=== PATIENT | female | born 1965 | race Caucasian/White ===

== ENCOUNTER → 2016-07-15 | Outpatient (CLI) | payer BC, OTHER ==
[~2016-07-15] MED LIST: /AMLO25TA PO; ASPI1TAB PO; ASPI81TA85 PO; BAYE325T12 PO; DULC5TAB PO; LIPI20TA PO; LISI10TA2 PO; NO HISTORICAL MEDS; OMEP20CA3 PO; PROA1AER IN; PROVENTIL INH; TYLE325T5 PO
[2016-07-15 09:05] LABS: ALBUMIN 3.5 GM/DL (3.2-5.2); ALBUMIN/GLOBULIN RATIO 1.06 (1.00-1.93); ALKALINE PHOSPHATASE 78 U/L (45-117); ALT/SGPT 19 U/L (12-78); ANION GAP 9 MEQ/L (8-16); AST/SGOT 13 U/L (15-37); BILIRUBIN,TOTAL 0.6 MG/DL (0.2-1.0); BLOOD UREA NITROGEN 13 MG/DL (7-18); CALCIUM LEVEL 8.2 MG/DL (8.5-10.1); CARBON DIOXIDE LEVEL 27 MEQ/L (21-32); CHLORIDE LEVEL 105 MEQ/L (98-107); CHOLESTEROL LEVEL 139 MG/DL (<200); GLOMERULAR FILTRATION RATE > 60.0 (>51); GLUCOSE, FASTING 93 MG/DL (70-105); POTASSIUM SERUM 3.7 MEQ/L (3.5-5.1); SODIUM LEVEL 141 MEQ/L (136-145); TOTAL PROTEIN 6.8 GM/DL (6.4-8.2); TRIGLYCERIDES LEVEL 70 MG/DL (<150)
== END ==
LOC: M LAB 08:15
PROVIDERS: ATTEND Internal Medicine
DX: I10 Essential (primary) hypertension (principal); E78.5 Hyperlipidemia, unspecified

== ENCOUNTER → 2016-12-10 | Outpatient (CLI) | payer BC ==
[~2016-12-10] MED LIST changes: +BACT800T5 PO; +CHLO125TA; +EPIN0.3I6; +FLUT1LOT INH; +NYST10CR; +PEPC1TAB4 PO; +POTA20TA6; +PRED20TA PO; -PROA1AER IN; +PROAAER10; +PROAAER10 IN; +TERA2CAP3
--- NOTE | 2016-12-10 16:02 | REPMRS ---
Patient History The patient states she had a clinical breast exam in 12/2016. No known family history of cancer. Digital Woman Screen Mammo: December 10, 2016 - Exam #: [id number] Bilateral CC and MLO view(s) were taken. Technologist: Fabiola Webber Technologist Prior study comparison: October 27, 2015, digital woman screen mammo performed at [facility] to [facility]. October 25, 2014, digital woman screen mammo performed at [facility] to [facility]. FINDINGS: There are scattered fibroglandular densities. There has been no change in the appearance of the mammogram from the prior studies. There is a mild amount of residual fibroglandular tissue which is fairly symmetric. There is no interval development of dominant mass, architectural distortion, or clustered microcalcification suggestive of malignancy. ASSESSMENT: BI-RADS/ACR category 1 mammogram. Negative. Recommendation Routine screening mammogram in 1 year (for women over age 40). This mammogram was interpreted with the aid of an FDA-approved computer-aided dectection system. Electronically Signed By: Efrain Hoskins MD 12/10/16 2732
== END ==
LOC: M WHC 14:22
PROVIDERS: ATTEND Nurse Practitioner Family
DX: Z12.31 Encounter for screening mammogram for malignant neoplasm of breast (principal)

== ENCOUNTER 2016-12-30 03:57 | Emergency (ER) | payer BC, OTHER ==
[~2016-12-30 03:57] MED LIST changes: -BACT800T5 PO; -CHLO125TA; -EPIN0.3I6; -FLUT1LOT INH; -NYST10CR; -PEPC1TAB4 PO; -POTA20TA6; -PRED20TA PO; -PROAAER10; -TERA2CAP3
[2016-12-30 04:07] VITALS: BP 149/76
[2016-12-30] MEDS ORDERED: LISI10TA2 PO (04:14)
[2016-12-30] MEDS ORDERED: FLUT1LOT INH (04:14)
[2016-12-30] MEDS ORDERED: BACT800T5 PO (04:14)
[2016-12-30] MEDS ORDERED: diphenhydrAMINE INJ 50MG/ML VIAL (J1200) IV ONE (04:45)
[2016-12-30] MEDS ORDERED: dexameTHASONE 20 MG/5 ML VIAL (J1100) IV ONE (04:45)
[2016-12-30] MEDS ORDERED: PRED20TA PO (05:20)
== END 2016-12-30 05:31 | disposition home or self-care (01) ==
LOC: M ED 03:57
DX: T78.40XA Allergy, unspecified, initial encounter (principal); I10 Essential (primary) hypertension; E78.4 Other hyperlipidemia; J45.909 Unspecified asthma, uncomplicated; K21.9 Gastro-esophageal reflux disease without esophagitis
CPT/HCPCS: 96374; 96375; 99283; J1100; J1200

== ENCOUNTER 2017-01-09 04:42 | Emergency (ER) | payer BC, OTHER ==
[~2017-01-09] VITALS: Ht 170.2 cm; Wt 113.6 kg
[~2017-01-09 04:42] MED LIST changes: +BACT800T5 PO; +FLUT1LOT INH; +PRED20TA PO
[2017-01-09] MEDS ORDERED: diphenhydrAMINE INJ 50MG/ML VIAL (J1200) IV ONE (05:45)
[2017-01-09] MEDS ORDERED: methylPREDNISolone INJ 125 MG/2 ML VIAL (J2930) IV ONE (05:45)
[2017-01-09] MEDS ORDERED: FAMOTIDINE IV BAG 20 MG in APPROPRIATE DILUENT 1 EA IV ONE (05:45)
[2017-01-09] MEDS ORDERED: PRED20TA PO (06:28)
[2017-01-09 06:42] VITALS: BP 158/76
== END 2017-01-09 06:43 | disposition home or self-care (01) ==
LOC: M ED 04:42
DX: T78.40XA Allergy, unspecified, initial encounter (principal)
CPT/HCPCS: 96374; 96375; 99283; J1200; J2930

== ENCOUNTER → 2017-01-20 | Outpatient (CLI) | payer BC, OTHER ==
[~2017-01-20] MED LIST changes: +ALLE180T33 PO; +CHLO125TA; +EPIN0.3I6; +LEVOTAB10 PO; +NYST10CR; +PEPC1TAB4 PO; +POTA20TA6; +PRED10TA2 PO; +PROAAER10; +TERA2CAP3
[2017-01-20 08:58] LABS: ALKALINE PHOSPHATASE 59 U/L (45-117); ALT/SGPT 22 U/L (12-78); ANION GAP 7 MEQ/L (8-16); AST/SGOT 7 U/L (15-37); BLOOD UREA NITROGEN 18 MG/DL (7-18); CALCIUM LEVEL 8.5 MG/DL (8.5-10.1); CARBON DIOXIDE LEVEL 30 MEQ/L (21-32); CHLORIDE LEVEL 106 MEQ/L (98-107); CREATININE FOR GFR 0.89 MG/DL (0.55-1.02); GLOMERULAR FILTRATION RATE > 60.0 (>51); GLUCOSE, FASTING 79 MG/DL (70-105); POTASSIUM SERUM 3.2 MEQ/L (3.5-5.1); SODIUM LEVEL 143 MEQ/L (136-145)
[2017-01-20 08:59] LABS: ALBUMIN 3.2 GM/DL (3.2-5.2); ALBUMIN/GLOBULIN RATIO 0.97 (1.00-1.93); BILIRUBIN,TOTAL 0.6 MG/DL (0.2-1.0); CHOLESTEROL LEVEL 137 MG/DL (<200); TOTAL PROTEIN 6.5 GM/DL (6.4-8.2); TRIGLYCERIDES LEVEL 96 MG/DL (<150)
== END ==
LOC: M LAB 08:14
PROVIDERS: ATTEND Internal Medicine
DX: I10 Essential (primary) hypertension (principal)

== ENCOUNTER 2017-01-24 16:43 | Emergency (ER) | payer BC, OTHER ==
[~2017-01-24] VITALS: Ht 170.2 cm; Wt 113.6 kg
[~2017-01-24 16:43] MED LIST changes: -ALLE180T33 PO; -CHLO125TA; -EPIN0.3I6; -LEVOTAB10 PO; -NYST10CR; -PEPC1TAB4 PO; -POTA20TA6; -PRED10TA2 PO; -PROAAER10; -TERA2CAP3
[2017-01-24] MEDS ORDERED: CHLO125TA (16:57)
[2017-01-24] MEDS ORDERED: NYST10CR (16:57)
[2017-01-24] MEDS ORDERED: EPIN0.3I6 (16:57)
[2017-01-24] MEDS ORDERED: POTA20TA6 (16:57)
[2017-01-24] MEDS ORDERED: FAMOTIDINE IV BAG 20 MG in APPROPRIATE DILUENT 1 EA IV ONE (19:15)
[2017-01-24] MEDS ORDERED: methylPREDNISolone INJ 125 MG/2 ML VIAL (J2930) IV ONE (19:15)
[2017-01-24] MEDS ORDERED: diphenhydrAMINE INJ 50MG/ML VIAL (J1200) IV ONE (19:15)
[2017-01-24] MEDS ORDERED: PEPC1TAB4 PO (20:27)
[2017-01-24] MEDS ORDERED: PRED20TA PO (20:27)
[2017-01-24 20:39] VITALS: BP 137/87
== END 2017-01-24 20:45 | disposition home or self-care (01) ==
LOC: M ED 16:43
DX: T78.40XA Allergy, unspecified, initial encounter (principal); I10 Essential (primary) hypertension; Y92.099 Unspecified place in other non-institutional residence as the place of occurrence of the external cause; Y93.89 Activity, other specified; Y99.9 Unspecified external cause status
CPT/HCPCS: 96365; 96375; 99283; J1200; J2930

== ENCOUNTER 2017-02-20 00:06 | Emergency (ER) | payer BC, OTHER ==
[~2017-02-20] VITALS: Ht 172.7 cm; Wt 113.6 kg
[~2017-02-20 00:06] MED LIST changes: +CHLO125TA; +EPIN0.3I6; +NYST10CR; +PEPC1TAB4 PO; +POTA20TA6
[2017-02-20] MEDS ORDERED: TERA2CAP3 (00:21)
[2017-02-20] MEDS ORDERED: PROAAER10 (00:21)
[2017-02-20] MEDS ORDERED: diphenhydrAMINE INJ 50MG/ML VIAL (J1200) IV ONE (00:45)
[2017-02-20] MEDS ORDERED: FAMOTIDINE IV BAG 20 MG in APPROPRIATE DILUENT 1 EA IV ONE (00:45)
[2017-02-20] MEDS ORDERED: methylPREDNISolone INJ 125 MG/2 ML VIAL (J2930) IV ONE (00:45)
[2017-02-20 02:25] VITALS: BP 139/67
== END 2017-02-20 02:29 | disposition home or self-care (01) ==
LOC: M ED 00:06
DX: T78.40XA Allergy, unspecified, initial encounter (principal); Y92.89 Other specified places as the place of occurrence of the external cause; Y93.89 Activity, other specified; Y99.9 Unspecified external cause status
CPT/HCPCS: 96374; 96375; 99283; J1200; J2930

== ENCOUNTER 2017-03-17 22:28 | Emergency (ER) | payer BC, OTHER ==
[~2017-03-17] VITALS: Ht 170.2 cm; Wt 113.6 kg
[~2017-03-17 22:28] MED LIST changes: +PROAAER10; +TERA2CAP3
[2017-03-17 22:29] VITALS: BP 173/86
[2017-03-17] MEDS ORDERED: ALLE180T33 PO (22:40)
[2017-03-17] MEDS ORDERED: LEVOTAB10 PO (22:40)
[2017-03-17] MEDS ORDERED: predniSONE 10 MG TAB PO ONE (23:00)
[2017-03-17] MEDS ORDERED: PRED10TA2 PO (23:01)
== END 2017-03-17 23:15 | disposition home or self-care (01) ==
LOC: M ED 22:28
DX: T78.40XA Allergy, unspecified, initial encounter (principal)

== ENCOUNTER 2017-04-08 23:17 | Emergency (ER) | payer BC, OTHER ==
[~2017-04-08] VITALS: Ht 170.2 cm; Wt 113.6 kg
[~2017-04-08 23:17] MED LIST changes: +ALLE180T33 PO; +LEVOTAB10 PO; +PRED10TA2 PO
[2017-04-08 23:18] VITALS: BP 165/88
== END 2017-04-09 01:09 | disposition left against medical advice (07) ==
LOC: M ED 23:17
DX: Z53.29 Procedure and treatment not carried out because of patient's decision for other reasons (principal)

== ENCOUNTER → 2017-07-28 | Outpatient (CLI) | payer BC, OTHER ==
[2017-07-28 09:19] LABS: ALBUMIN 3.5 GM/DL (3.2-5.2); ALBUMIN/GLOBULIN RATIO 1.13 (1.00-1.93); ALKALINE PHOSPHATASE 80 U/L (45-117); ALT/SGPT 19 U/L (12-78); ANION GAP 7 MEQ/L (8-16); AST/SGOT 9 U/L (7-37); BILIRUBIN,TOTAL 0.5 MG/DL (0.2-1.0); BLOOD UREA NITROGEN 14 MG/DL (7-18); CALCIUM LEVEL 8.3 MG/DL (8.5-10.1); CARBON DIOXIDE LEVEL 27 MEQ/L (21-32); CHLORIDE LEVEL 110 MEQ/L (98-107); CHOLESTEROL LEVEL 117 MG/DL (<200); CHOLESTEROL RISK RATIO 2.089 (<5); CREATININE FOR GFR 0.86 MG/DL (0.55-1.30); GLOMERULAR FILTRATION RATE > 60.0 (>51); GLUCOSE, FASTING 98 MG/DL (70-100); HDL CHOLESTEROL 56 MG/DL (>40); LDL CHOLESTEROL 49.4 MG/DL (<100); NON-HDL-C 61 MG/DL; POTASSIUM SERUM 4.2 MEQ/L (3.5-5.1); SODIUM LEVEL 144 MEQ/L (136-145); TOTAL PROTEIN 6.6 GM/DL (6.4-8.2); TRIGLYCERIDES LEVEL 58 MG/DL (<150)
== END ==
LOC: M LAB 08:16
DX: E78.5 Hyperlipidemia, unspecified (principal); I10 Essential (primary) hypertension
CPT/HCPCS: 80053

== ENCOUNTER → 2018-01-26 | Outpatient (CLI) | payer BC, OTHER ==
[2018-01-26 09:39] LABS: ALBUMIN 3.5 GM/DL (3.2-5.2); ALBUMIN/GLOBULIN RATIO 1.06 (1.00-1.93); ALKALINE PHOSPHATASE 91 U/L (45-117); ALT/SGPT 17 U/L (12-78); ANION GAP 9 MEQ/L (8-16); AST/SGOT 7 U/L (7-37); BILIRUBIN,TOTAL 0.4 MG/DL (0.2-1.0); BLOOD UREA NITROGEN 17 MG/DL (7-18); CALCIUM LEVEL 8.3 MG/DL (8.5-10.1); CARBON DIOXIDE LEVEL 25 MEQ/L (21-32); CHLORIDE LEVEL 109 MEQ/L (98-107); CHOLESTEROL LEVEL 126 MG/DL (<200); CHOLESTEROL RISK RATIO 2.571 (<5); CREATININE FOR GFR 0.94 MG/DL (0.55-1.30); GLOMERULAR FILTRATION RATE > 60.0 (>51); GLUCOSE, FASTING 91 MG/DL (70-100); HDL CHOLESTEROL 49 MG/DL (>40); LDL CHOLESTEROL 63 MG/DL (<100); NON-HDL-C 77 MG/DL; POTASSIUM SERUM 4.2 MEQ/L (3.5-5.1); SODIUM LEVEL 143 MEQ/L (136-145); TOTAL PROTEIN 6.8 GM/DL (6.4-8.2); TRIGLYCERIDES LEVEL 69 MG/DL (<150)
== END ==
LOC: M LAB 08:34
DX: E78.5 Hyperlipidemia, unspecified (principal); I10 Essential (primary) hypertension
CPT/HCPCS: 84443

== ENCOUNTER → 2018-02-10 | Outpatient (CLI) | payer BC | LOC: M WHC 13:30 | DX: Z12.31 Encounter for screening mammogram for malignant neoplasm of breast (principal) | CPT/HCPCS: 77067 ==

== ENCOUNTER → 2018-02-10 | Outpatient (REF) | payer OTHER | LOC: M SFHCWAGY 13:56 | DX: Z12.4 Encounter for screening for malignant neoplasm of cervix (principal) ==

== ENCOUNTER → 2018-06-29 | Outpatient (CLI) | payer BC, OTHER ==
[~2018-06-29] MED LIST changes: +EPIN0.3I11; -EPIN0.3I6; -PEPC1TAB4 PO; +PEPC1TAB5 PO
[2018-06-29 08:57] LABS: ALBUMIN 3.6 GM/DL (3.2-5.2); ALT/SGPT 16 U/L (12-78); BILIRUBIN,TOTAL 0.5 MG/DL (0.2-1.0); BLOOD UREA NITROGEN 17 MG/DL (7-18); CALCIUM LEVEL 8.3 MG/DL (8.5-10.1); CARBON DIOXIDE LEVEL 26 MEQ/L (21-32); CHLORIDE LEVEL 108 MEQ/L (98-107); CHOLESTEROL LEVEL 130 MG/DL (<200); CHOLESTEROL RISK RATIO 2.363 (<5); CREATININE FOR GFR 0.87 MG/DL (0.55-1.30); GLOMERULAR FILTRATION RATE > 60.0 (>51); GLUCOSE, FASTING 96 MG/DL (70-100); HDL CHOLESTEROL 55 MG/DL (>40); LDL CHOLESTEROL 65 MG/DL (<100); NON-HDL-C 75 MG/DL; POTASSIUM SERUM 4.2 MEQ/L (3.5-5.1); SODIUM LEVEL 142 MEQ/L (136-145); TOTAL PROTEIN 6.9 GM/DL (6.4-8.2); TRIGLYCERIDES LEVEL 52 MG/DL (<150)
== END ==
LOC: M LAB 08:14
PROVIDERS: ATTEND Internal Medicine
DX: E78.5 Hyperlipidemia, unspecified (principal); I10 Essential (primary) hypertension

== ENCOUNTER → 2019-01-18 | Outpatient (CLI) | payer BC, OTHER ==
[~2019-01-18] MED LIST changes: -/AMLO25TA PO; -ASPI1TAB PO; +ASPI81TA26 PO; +LISI10TA15 PO; -LISI10TA2 PO; +NORV2TAB PO; +OMEP1CAP73 PO; -OMEP20CA3 PO
[2019-01-18 09:15] LABS: EOS # 0.5 10^3/uL (0.0-0.5); HEMATOCRIT 39.5 % (36.0-47.0); HEMOGLOBIN 12.6 g/dl (12.0-15.5); LYMPH # 1.3 10^3/uL (1.5-5.0); LYMPH % 21.9 % (24.0-44.0); MEAN CORPUSCULAR HEMOGLOBIN 27.1 pg (27.0-33.0); MEAN CORPUSCULAR HGB CONC 31.9 g/dl (32.0-36.5); MEAN CORPUSCULAR VOLUME 84.9 fl (80.0-96.0); MONO # 0.3 10^3/uL (0.0-0.8); MONO % 5.4 % (0.0-5.0); NEUTROPHILS # 3.7 10^3/uL (1.5-8.5); NEUTROPHILS % 63.4 % (36.0-66.0); PLATELET COUNT, AUTOMATED 229 10^3/uL (150-450); RED BLOOD COUNT 4.65 10^6/uL (4.00-5.40); WHITE BLOOD COUNT 5.9 10^3/uL (4.0-10.0)
[2019-01-18 09:44] LABS: ALBUMIN 3.5 GM/DL (3.2-5.2); ALT/SGPT 17 U/L (12-78); BILIRUBIN,TOTAL 0.5 MG/DL (0.2-1.0); BLOOD UREA NITROGEN 16 MG/DL (7-18); CALCIUM LEVEL 8.8 MG/DL (8.5-10.1); CARBON DIOXIDE LEVEL 25 MEQ/L (21-32); CHLORIDE LEVEL 112 MEQ/L (98-107); CHOLESTEROL LEVEL 135 MG/DL (<200); CREATININE FOR GFR 0.88 MG/DL (0.55-1.30); GLOMERULAR FILTRATION RATE > 60.0 (>51); GLUCOSE, FASTING 94 MG/DL (70-100); HDL CHOLESTEROL 56 MG/DL (>40); LDL CHOLESTEROL 64 MG/DL (<100); NON-HDL-C 79 MG/DL; POTASSIUM SERUM 4.3 MEQ/L (3.5-5.1); SODIUM LEVEL 144 MEQ/L (136-145); TOTAL PROTEIN 6.7 GM/DL (6.4-8.2); TRIGLYCERIDES LEVEL 75 MG/DL (<150)
== END ==
LOC: M LAB 08:22
PROVIDERS: ATTEND Internal Medicine
DX: I10 Essential (primary) hypertension (principal)

== ENCOUNTER → 2019-01-29 | Outpatient (REF) ==
[~2019-01-29] MED LIST changes: -OMEP1CAP73 PO; +OMEP20CA4 PO
[2019-01-30 11:06] LABS: RUBELLA IgG QUALITATIVE IMMUNE (IMMUNE)
== END ==
LOC: M LAB 17:46
PROVIDERS: ATTEND Nurse Practitioner Adult Health
DX: Z02.1 Encounter for pre-employment examination (principal)

== ENCOUNTER → 2019-06-11 | Outpatient (CLI) | payer BC, OTHER ==
[~2019-06-11] MED LIST changes: +OMEP1CAP73 PO; -OMEP20CA4 PO
--- NOTE | 2019-06-11 16:45 | REPMRS ---
Patient History The patient states she had a clinical breast exam in June 2019.No known family history of cancer. No Hormone Replacement Therapy Digital Woman Screen Mammo: June 11, 2019 - Exam #: [id number] Bilateral CC and MLO view(s) were taken. Technologist: Nga Valdez, Technologist Prior study comparison: February 10, 2018, bilateral digital woman screen mammo performed at [facility]. December 10, 2016, digital woman screen mammo performed at [facility]. October 27, 2015, digital woman screen mammo performed at [facility]. FINDINGS: There are scattered fibroglandular densities. There has been no change in the appearance of the mammogram from the prior studies. There is a mild amount of scattered fibroglandular density which is fairly symmetric. There is no interval development of dominant mass, architectural distortion, or grouped microcalcification suggestive of malignancy. 3-D tomosynthesis shows no additional findings. Assessment: BI-RADS/ACR category 1 mammogram. Negative Mammogram. Recommendation Routine screening mammogram of both breasts in 1 year (for women over age 40). This patient's Lifetime Breast Cancer Risk is estimated at 9.4 %. This mammogram was interpreted with the aid of an FDA-approved computer-aided dectection system. Electronically Signed By: Gus Mckeon MD 06/11/19 [id number]
== END ==
LOC: M WHC 15:14
PROVIDERS: ATTEND Nurse Practitioner Family
DX: Z12.31 Encounter for screening mammogram for malignant neoplasm of breast (principal); Z12.4 Encounter for screening for malignant neoplasm of cervix
CPT/HCPCS: 77063; 77067; 87624; G0123

== ENCOUNTER → 2019-07-12 | Outpatient (CLI) | payer BC, OTHER ==
[2019-07-12 09:45] LABS: ALBUMIN 3.5 GM/DL (3.2-5.2); ALT/SGPT 21 U/L (12-78); BILIRUBIN,TOTAL 0.5 MG/DL (0.2-1.0); BLOOD UREA NITROGEN 18 MG/DL (7-18); CALCIUM LEVEL 8.2 MG/DL (8.5-10.1); CARBON DIOXIDE LEVEL 27 MEQ/L (21-32); CHLORIDE LEVEL 111 MEQ/L (98-107); CHOLESTEROL LEVEL 125 MG/DL (<200); CHOLESTEROL RISK RATIO 2.551 (<5); CREATININE FOR GFR 0.85 MG/DL (0.55-1.30); GLOMERULAR FILTRATION RATE > 60.0 (>51); GLUCOSE, FASTING 99 MG/DL (70-100); HDL CHOLESTEROL 49 MG/DL (>40); LDL CHOLESTEROL 64 MG/DL (<100); NON-HDL-C 76 MG/DL; POTASSIUM SERUM 4.3 MEQ/L (3.5-5.1); SODIUM LEVEL 143 MEQ/L (136-145); TOTAL PROTEIN 6.7 GM/DL (6.4-8.2); TRIGLYCERIDES LEVEL 62 MG/DL (<150)
== END ==
LOC: M LAB 08:41
PROVIDERS: ATTEND Family Medicine
DX: E78.5 Hyperlipidemia, unspecified (principal); F41.9 Anxiety disorder, unspecified; I10 Essential (primary) hypertension

== ENCOUNTER → 2020-01-17 | Outpatient (CLI) | payer BC, OTHER ==
[2020-01-17 09:10] LABS: ALBUMIN 3.4 GM/DL (3.2-5.2); ALT/SGPT 20 U/L (12-78); BILIRUBIN,TOTAL 0.4 MG/DL (0.2-1.0); BLOOD UREA NITROGEN 20 MG/DL (7-18); CALCIUM LEVEL 8.4 MG/DL (8.5-10.1); CARBON DIOXIDE LEVEL 27 MEQ/L (21-32); CHLORIDE LEVEL 110 MEQ/L (98-107); CHOLESTEROL LEVEL 135 MG/DL (<200); CHOLESTEROL RISK RATIO 2.647 (<5); CREATININE FOR GFR 0.85 MG/DL (0.55-1.30); GLOMERULAR FILTRATION RATE > 60.0 (>51); GLUCOSE, FASTING 97 MG/DL (70-100); HDL CHOLESTEROL 51 MG/DL (>40); LDL CHOLESTEROL 70 MG/DL (<100); NON-HDL-C 84 MG/DL; POTASSIUM SERUM 4.6 MEQ/L (3.5-5.1); SODIUM LEVEL 143 MEQ/L (136-145); TOTAL PROTEIN 7.1 GM/DL (6.4-8.2); TRIGLYCERIDES LEVEL 68 MG/DL (<150)
== END ==
LOC: M LAB 08:08
PROVIDERS: ATTEND Internal Medicine
DX: E78.5 Hyperlipidemia, unspecified (principal); I10 Essential (primary) hypertension; F41.9 Anxiety disorder, unspecified

== ENCOUNTER → 2020-05-31 | Outpatient (REF) | payer OTHER | LOC: M LAB REF 15:22 | PROVIDERS: ATTEND Dermatology | DX: D17.1 Benign lipomatous neoplasm of skin and subcutaneous tissue of trunk (principal) ==

== ENCOUNTER → 2020-07-27 | Outpatient (CLI) | payer BC, OTHER ==
[2020-07-27 07:09] LABS: ALBUMIN 3.5 GM/DL (3.2-5.2); ALT/SGPT 23 U/L (12-78); BILIRUBIN,TOTAL 0.3 MG/DL (0.2-1.0); BLOOD UREA NITROGEN 16 MG/DL (7-18); CALCIUM LEVEL 8.3 MG/DL (8.5-10.1); CARBON DIOXIDE LEVEL 29 MEQ/L (21-32); CHLORIDE LEVEL 109 MEQ/L (98-107); CHOLESTEROL LEVEL 128 MG/DL (<200); CHOLESTEROL RISK RATIO 2.285 (<5); CREATININE FOR GFR 0.82 MG/DL (0.55-1.30); GLOMERULAR FILTRATION RATE > 60.0 (>51); GLUCOSE, FASTING 101 MG/DL (70-100); HDL CHOLESTEROL 56 MG/DL (>40); LDL CHOLESTEROL 59 MG/DL (<100); NON-HDL-C 72 MG/DL; POTASSIUM SERUM 4.1 MEQ/L (3.5-5.1); SODIUM LEVEL 143 MEQ/L (136-145); TOTAL PROTEIN 6.9 GM/DL (6.4-8.2); TRIGLYCERIDES LEVEL 64 MG/DL (<150)
== END ==
LOC: M LAB 06:10
PROVIDERS: ATTEND Internal Medicine
DX: E78.5 Hyperlipidemia, unspecified (principal); I10 Essential (primary) hypertension; F41.9 Anxiety disorder, unspecified

== ENCOUNTER → 2020-08-01 | Outpatient (CLI) | payer BC ==
--- NOTE | 2020-08-01 09:39 | REPMRS ---
Patient History The patient states she had a clinical breast exam in 07/2020 Patient is postmenopausal. Family history of colorectal cancer at age 78 and prostate cancer at age 50 or over in father. No Hormone Replacement Therapy Digital Woman Screen Mammo: August 01, 2020 - Exam #: [id number] Bilateral CC and MLO view(s) were taken. Technologist: Mounika Owens, Technologist Prior study comparison: June 11, 2019, bilateral digital woman screen mammo performed at [facility]. February 10, 2018, bilateral digital woman screen mammo performed at [facility]. December 10, 2016, digital woman screen mammo performed at [facility]. FINDINGS: The breast tissue is almost entirely fat. The Volpara volumetric breast density category is: A. There has been no change in the appearance of the mammogram from the prior studies. There is no interval development of dominant mass, architectural distortion, or grouped microcalcification typical of malignancy. 3-D tomosynthesis shows no additional findings. Assessment: BI-RADS/ACR category 1 mammogram. Negative Mammogram. Recommendation Routine screening mammogram of both breasts in 1 year (for women over age 40). This patient's Tyrer-zick Lifetime Breast Cancer RIsk is estimated at 10.5 %. This mammogram was interpreted with the aid of an FDA-approved computer-aided dectection system. Electronically Signed By: Gus Mckeon MD 08/01/20 0939
== END ==
LOC: M WHC 08:01
PROVIDERS: ATTEND Nurse Practitioner Family
DX: Z12.31 Encounter for screening mammogram for malignant neoplasm of breast (principal); R92.8 Other abnormal and inconclusive findings on diagnostic imaging of breast

== ENCOUNTER → 2021-01-29 | Outpatient (CLI) | payer BC, OTHER ==
[2021-01-29 10:33] LABS: ALBUMIN 3.2 GM/DL (3.2-5.2); ALT/SGPT 21 U/L (12-78); BILIRUBIN,TOTAL 0.5 MG/DL (0.2-1.0); BLOOD UREA NITROGEN 16 MG/DL (7-18); CALCIUM LEVEL 8.6 MG/DL (8.5-10.1); CARBON DIOXIDE LEVEL 29 MEQ/L (21-32); CHLORIDE LEVEL 110 MEQ/L (98-107); CHOLESTEROL LEVEL 132 MG/DL (<200); CREATININE FOR GFR 0.78 MG/DL (0.55-1.30); GLOMERULAR FILTRATION RATE > 60.0 (>51); GLUCOSE, FASTING 97 MG/DL (70-100); HDL CHOLESTEROL 55 MG/DL (>40); LDL CHOLESTEROL 65 MG/DL (<100); NON-HDL-C 77 MG/DL; POTASSIUM SERUM 4.3 MEQ/L (3.5-5.1); SODIUM LEVEL 143 MEQ/L (136-145); TOTAL PROTEIN 7.1 GM/DL (6.4-8.2); TRIGLYCERIDES LEVEL 61 MG/DL (<150)
== END ==
LOC: M LAB 09:33
PROVIDERS: ATTEND Internal Medicine
DX: E78.5 Hyperlipidemia, unspecified (principal)

== ENCOUNTER → 2021-04-12 | Outpatient (CLI) | payer BC, OTHER ==
[~2021-04-12] MED LIST changes: +ATOR1TAB21 PO; +BETA0.0543 TOP; +BREO1INH INH; +FLUTISP NARES; +LEXA1TAB2 PO; +NYST10CR TOP; +PIME1CRE TOP; +PROAAER10 INH; +TERA2CAP3 PO; +VITMTA PO
== END ==
LOC: M LABSMTC 10:27
PROVIDERS: ATTEND Anesthesiology
DX: Z01.812 Encounter for preprocedural laboratory examination (principal); Z11.52 Encounter for screening for COVID-19

== ENCOUNTER 2021-04-17 08:36 | Day surgery (SDC) | payer BC, OTHER ==
[~2021-04-17] VITALS: Ht 170.2 cm; Wt 114.8 kg
[~2021-04-17 08:36] MED LIST changes: +LIDOCAINE 2% 100MG/5ML SDV (FOR ANES.) As Ordered ONE; -LISI10TA15 PO; +LISI10TA24 PO; +NS 1,000 ML IV ONE; +POTA-151; -POTA20TA6; +propofoL 200 MG/20 ML VIAL As Ordered ONE
[2021-04-17] MEDS ORDERED: propofoL 200 MG/20 ML VIAL As Ordered ONE (09:38)
[2021-04-17 10:19] VITALS: BP 148/76
== END 2021-04-17 11:04 | disposition home or self-care (01) ==
LOC: M OPP 08:36
PROVIDERS: ATTEND Surgery
DX: Z12.11 Encounter for screening for malignant neoplasm of colon (principal); Z86.010 Personal history of colon polyps; Z80.0 Family history of malignant neoplasm of digestive organs; D12.6 Benign neoplasm of colon, unspecified; Z79.82 Long term (current) use of aspirin; Z79.899 Other long term (current) drug therapy; Z88.1 Allergy status to other antibiotic agents; Z88.2 Allergy status to sulfonamides; Z88.8 Allergy status to other drugs, medicaments and biological substances

== ENCOUNTER → 2021-09-05 | Outpatient (CLI) | payer BC, OTHER ==
[~2021-09-05] MED LIST changes: -LIDOCAINE 2% 100MG/5ML SDV (FOR ANES.) As Ordered ONE; -NS 1,000 ML IV ONE; -propofoL 200 MG/20 ML VIAL As Ordered ONE
[2021-09-05 08:22] LABS: BASO % 0.6 % (0.0-1.0); EOS # 0.4 10^3/uL (0.0-0.5); EOS % 5.5 % (0.0-3.0); HEMATOCRIT 37.6 % (36.0-47.0); HEMOGLOBIN 11.6 g/dl (12.0-15.5); LYMPH # 1.1 10^3/uL (1.5-5.0); LYMPH % 17.3 % (24.0-44.0); MEAN CORPUSCULAR HEMOGLOBIN 24.4 pg (27.0-33.0); MEAN CORPUSCULAR HGB CONC 30.9 g/dl (32.0-36.5); MEAN CORPUSCULAR VOLUME 79.2 fl (80.0-96.0); MONO # 0.4 10^3/uL (0.0-0.8); MONO % 6.8 % (2.0-8.0); NEUTROPHILS # 4.4 10^3/uL (1.5-8.5); NEUTROPHILS % 69.5 % (36.0-66.0); PLATELET COUNT, AUTOMATED 315 10^3/uL (150-450); RED BLOOD COUNT 4.75 10^6/uL (4.00-5.40); WHITE BLOOD COUNT 6.4 10^3/uL (4.0-10.0)
[2021-09-05 08:47] LABS: ALBUMIN 3.2 GM/DL (3.2-5.2); ALT/SGPT 14 U/L (12-78); BILIRUBIN,TOTAL 0.4 MG/DL (0.2-1.0); BLOOD UREA NITROGEN 14 MG/DL (7-18); CARBON DIOXIDE LEVEL 29 MEQ/L (21-32); CHLORIDE LEVEL 106 MEQ/L (98-107); CHOLESTEROL LEVEL 135 MG/DL (<200); CREATININE FOR GFR 0.75 MG/DL (0.55-1.30); GLOMERULAR FILTRATION RATE > 60.0 (>51); GLUCOSE, FASTING 103 MG/DL (70-100); HDL CHOLESTEROL 45 MG/DL (>40); LDL CHOLESTEROL 78 MG/DL (<100); NON-HDL-C 90 MG/DL; POTASSIUM SERUM 4.1 MEQ/L (3.5-5.1); SODIUM LEVEL 143 MEQ/L (136-145); TOTAL PROTEIN 6.8 GM/DL (6.4-8.2); TRIGLYCERIDES LEVEL 60 MG/DL (<150)
== END ==
LOC: M LAB 07:41
PROVIDERS: ATTEND Internal Medicine
DX: E78.5 Hyperlipidemia, unspecified (principal); I10 Essential (primary) hypertension

== ENCOUNTER → 2021-09-11 | Outpatient (CLI) | payer BC, OTHER | LOC: M WUC 12:06 | PROVIDERS: ATTEND Internal Medicine | DX: R10.9 Unspecified abdominal pain (principal) ==

== ENCOUNTER → 2021-12-01 | Outpatient (CLI) | payer BC, OTHER ==
[~2021-12-01] MED LIST changes: +NYST-13; +NYST-13 TOP; -NYST10CR; -NYST10CR TOP
== END ==
LOC: M WHC 10:48
PROVIDERS: ATTEND Advanced Practice Midwife
DX: Z12.31 Encounter for screening mammogram for malignant neoplasm of breast (principal)

== ENCOUNTER → 2021-12-01 | Outpatient (REF) | payer OTHER, BC ==
[2021-12-01 16:03] LABS: GC DNA AMPLIFICATION NEGATIVE (NEGATIVE)
== END ==
LOC: M SFHCWAGY 13:02
PROVIDERS: ATTEND Advanced Practice Midwife
DX: Z11.3 Encounter for screening for infections with a predominantly sexual mode of transmission (principal)

== ENCOUNTER 2021-12-09 17:21 | Inpatient (IN) | payer BC, OTHER ==
[~2021-12-09] VITALS: Ht 170.2 cm; Wt 107.2 kg
[2021-12-09] MEDS ORDERED: ISOVUE-370 76% 100ML VIAL As Ordered ONE (19:16)
[2021-12-09 19:17] LABS: BASO % 0.3 % (0.0-1.0); EOS # 0.1 10^3/uL (0.0-0.5); EOS % 1.5 % (0.0-3.0); HEMATOCRIT 35.9 % (36.0-47.0); HEMOGLOBIN 10.6 g/dl (12.0-15.5); LYMPH # 0.7 10^3/uL (1.5-5.0); LYMPH % 9.7 % (24.0-44.0); MEAN CORPUSCULAR HGB CONC 29.5 g/dl (32.0-36.5); MONO # 0.7 10^3/uL (0.0-0.8); MONO % 8.9 % (2.0-8.0); NEUTROPHILS # 5.9 10^3/uL (1.5-8.5); NEUTROPHILS % 79.2 % (36.0-66.0); PLATELET COUNT, AUTOMATED 279 10^3/uL (150-450); WHITE BLOOD COUNT 7.4 10^3/uL (4.0-10.0)
[2021-12-09] MEDS ORDERED: IPRATROPIUM 0.5MG/ALBUTEROL 2.5MG INH SOL UD 3ML (DUONEB) NEB ONE (21:00)
[2021-12-09] MEDS ORDERED: FUROSEMIDE 40MG/4ML VIAL (J1940) IV ONE (21:00)
[2021-12-09] MEDS: TERAZOSIN 1 MG CAP PO SCH (21:00)
[2021-12-09 21:23] LABS: ALBUMIN 2.7 GM/DL (3.2-5.2); BILIRUBIN,DIRECT 0.2 MG/DL (0.0-0.2); BILIRUBIN,TOTAL 0.7 MG/DL (0.2-1.0); TOTAL PROTEIN 5.9 GM/DL (6.4-8.2)
[2021-12-09] MEDS ORDERED: cefTRIAXone SOD 1 GM in D5W MINI-BAG PLUS 50 ML IV ONE (21:50)
[2021-12-09] MEDS ORDERED: guaiFENesin ER 600 MG TAB PO PRN (22:55)
[2021-12-09] MEDS ORDERED: ACETAMINOPHEN TAB 650MG DOSE (2X325MG) PO PRN (22:55)
[2021-12-09] MEDS ORDERED: IPRATROPIUM 0.5MG/ALBUTEROL 2.5MG INH SOL UD 3ML (DUONEB) NEB PRN (22:55)
[2021-12-09] MEDS ORDERED: HOME MED LIST COMPLETE! XX SCH (23:20)
[2021-12-09] MEDS ORDERED: FLUTICASONE PROP 0.05% NASAL SPRAY 16 GM (FLONASE) NARES PRN (23:45)
[2021-12-09] MEDS ORDERED: NYSTATIN CREAM 15GM TOP PRN (23:45)
[2021-12-10] MEDS: ESCITALOPRAM OXALATE 10 MG TAB (LEXAPRO) PO SCH ×2 (01:17→21:03)
[2021-12-10 04:44] VITALS: BP 136/85
[2021-12-10 05:26] LABS: GLUCOSE, URINE (UA) MANUAL NEGATIVE (NEGATIVE)
[2021-12-10 05:27] LABS: BILIRUBIN, URINE MANUAL NEGATIVE (NEGATIVE); KETONE, URINE MANUAL 1+ mg/dL (NEGATIVE); UROBILINOGEN, URINE MANUAL 1 MG mg/dl (NORMAL)
[2021-12-10 05:47] LABS: RBC, URINE 30-40 /hpf (0-3); SQUAMOUS EPITHELIAL CELL URINE MOD AMOUNT /hpf (SMALL AMT)
[2021-12-10 05:48] LABS: BACTERIA, URINE MOD AMOUNT; HYALINE CAST, URINE NONE SEEN /lpf (0-1)
[2021-12-10 06:06] LABS: HEMATOCRIT 34.2 % (36.0-47.0); HEMOGLOBIN 10.3 g/dl (12.0-15.5); MEAN CORPUSCULAR HEMOGLOBIN 23.5 pg (27.0-33.0); MEAN CORPUSCULAR HGB CONC 30.1 g/dl (32.0-36.5); MEAN CORPUSCULAR VOLUME 77.9 fl (80.0-96.0); PLATELET COUNT, AUTOMATED 288 10^3/uL (150-450); RED BLOOD COUNT 4.39 10^6/uL (4.00-5.40); WHITE BLOOD COUNT 7.2 10^3/uL (4.0-10.0)
[2021-12-10 06:45] LABS: ALBUMIN 2.6 GM/DL (3.2-5.2); ALT/SGPT 15 U/L (12-78); BILIRUBIN,TOTAL 0.6 MG/DL (0.2-1.0); BLOOD UREA NITROGEN 8 MG/DL (7-18); CALCIUM LEVEL 8.6 MG/DL (8.5-10.1); CARBON DIOXIDE LEVEL 29 MEQ/L (21-32); CHLORIDE LEVEL 100 MEQ/L (98-107); CREATININE FOR GFR 0.74 MG/DL (0.55-1.30); GLOMERULAR FILTRATION RATE > 60.0 (>51); GLUCOSE, FASTING 99 MG/DL (70-100); MAGNESIUM LEVEL 2.1 MG/DL (1.8-2.4); POTASSIUM SERUM 3.5 MEQ/L (3.5-5.1); SODIUM LEVEL 137 MEQ/L (136-145); TOTAL PROTEIN 6.5 GM/DL (6.4-8.2)
[2021-12-10 06:48] LABS: PERCENT SATURATION 9.6 % (13.2-45.0)
[2021-12-10] MEDS: LACTOBACILLUS ACIDOPHILUS CAP (BACID) PO SCH (08:26)
[2021-12-10] MEDS: MULTIVITAMINS/MINERALS THERAP 1 TAB PO SCH (08:26)
[2021-12-10] MEDS: OMEPRAZOLE 20MG CAP PO SCH (08:26)
[2021-12-10] MEDS: ATORVASTATIN 20 MG TAB PO SCH (08:26)
[2021-12-10] MEDS ORDERED: ASPIRIN 325 MG TAB PO SCH (09:00)
[2021-12-10] MEDS ORDERED: ENOXAPARIN 40MG/0.4ML SYRINGE (J1650 PER 10MG) SC SCH (09:00)
[2021-12-10] MEDS: BUDESONIDE 180MCG INHALER (PULMICORT FLEXHALER) INH SCH ×2 (09:56→19:36)
[2021-12-10] MEDS: FEXOFENADINE 60MG TAB PO SCH (12:04)
[2021-12-10] MEDS: DOXYCYCLINE HYCLATE 100 MG in D5W MINI-BAG PLUS 100 ML IV SCH ×3 (12:04)
[2021-12-10 14:00] VITALS: BP 134/79
[2021-12-10] MEDS ORDERED: IRON SUCROSE 100MG 5ML VIAL (J1756 PER 1MG) IV SCH (17:20)
[2021-12-10] MEDS: TERAZOSIN 1 MG CAP PO SCH (21:03)
[2021-12-10] MEDS: cefTRIAXone SOD 1 GM in D5W MINI-BAG PLUS 50 ML IV SCH (21:03)
[2021-12-10 22:00] VITALS: BP 157/87
[2021-12-11] VITALS (7 sets, daily range): BP systolic 120–147; BP diastolic 75–90
[2021-12-11] MEDS: DOXYCYCLINE HYCLATE 100 MG in D5W MINI-BAG PLUS 100 ML IV SCH ×3 (00:22→14:31)
[2021-12-11 06:05] LABS: HEMATOCRIT 36.1 % (36.0-47.0); HEMOGLOBIN 10.6 g/dl (12.0-15.5); MEAN CORPUSCULAR HGB CONC 29.4 g/dl (32.0-36.5); MEAN CORPUSCULAR VOLUME 78.3 fl (80.0-96.0); PLATELET COUNT, AUTOMATED 278 10^3/uL (150-450); RED BLOOD COUNT 4.61 10^6/uL (4.00-5.40); WHITE BLOOD COUNT 7.1 10^3/uL (4.0-10.0)
[2021-12-11 06:38] LABS: BLOOD UREA NITROGEN 10 MG/DL (7-18); CALCIUM LEVEL 8.7 MG/DL (8.5-10.1); CARBON DIOXIDE LEVEL 29 MEQ/L (21-32); CHLORIDE LEVEL 102 MEQ/L (98-107); CREATININE FOR GFR 0.68 MG/DL (0.55-1.30); GLOMERULAR FILTRATION RATE > 60.0 (>51); GLUCOSE, FASTING 102 MG/DL (70-100); LDH LACTATE DEHYDROGENASE 510 U/L (84-246); POTASSIUM SERUM 3.7 MEQ/L (3.5-5.1); SODIUM LEVEL 137 MEQ/L (136-145); TOTAL PROTEIN 5.8 GM/DL (6.4-8.2)
[2021-12-11] MEDS: BUDESONIDE 180MCG INHALER (PULMICORT FLEXHALER) INH SCH ×2 (07:20→19:19)
[2021-12-11] MEDS: FEXOFENADINE 60MG TAB PO SCH (08:52)
[2021-12-11] MEDS: OMEPRAZOLE 20MG CAP PO SCH (08:52)
[2021-12-11] MEDS: LACTOBACILLUS ACIDOPHILUS CAP (BACID) PO SCH (08:52)
[2021-12-11] MEDS: MULTIVITAMINS/MINERALS THERAP 1 TAB PO SCH (08:52)
[2021-12-11] MEDS: ATORVASTATIN 20 MG TAB PO SCH (08:52)
[2021-12-11] MEDS ORDERED: LIDOCAINE 1% MDV 20ML VIAL As Ordered ONE (12:10)
[2021-12-11 12:31] LABS: FOLATE 18.9 NG/ML (>5.4)
[2021-12-11 14:25] LABS: SOURCE, BODY FLUID pH PLEURAL
[2021-12-11 14:32] LABS: APPEARANCE, BODY FLUID TURBID (CLEAR); PLEURAL FL COLOR RED (COLORLESS); SOURCE, BODY FLUID PLEURAL
[2021-12-11] MEDS: DOXYCYCLINE HYCLATE 100MG TABLET PO SCH (15:50)
[2021-12-11 16:46] LABS: AMYLASE, BODY FLUID 6 U/L (NOT ESTABLISHED); CHOLESTEROL, BODY FLUID < 50 MG/DL (NOT ESTABLISHED); LDH, BODY FLUID 423 U/L (NOT ESTABLISHED); SOURCE, BODY FLUID AMYLASE PLEURAL; SOURCE, BODY FLUID CHOL PLEURAL; SOURCE, BODY FLUID GLUCOSE PLEURAL; SOURCE, BODY FLUID LDH PLEURAL; SOURCE, BODY FLUID TOT PROTEIN PLEURAL; SOURCE, BODY FLUID TRIG PLEURAL; TOTAL PROTEIN, BODY FLUID 3.2 G/DL (NOT ESTABLISHED); TRIGLYCERIDE, BODY FLUID 15 MG/DL (NOT ESTABLISHED)
[2021-12-11] MEDS ORDERED: ONDANSETRON 4MG 2ML VIAL IV ONE (17:15)
[2021-12-11] MEDS: cefTRIAXone SOD 1 GM in D5W MINI-BAG PLUS 50 ML IV SCH (21:26)
[2021-12-11] MEDS: TERAZOSIN 1 MG CAP PO SCH (21:33)
[2021-12-11] MEDS: ESCITALOPRAM OXALATE 10 MG TAB (LEXAPRO) PO SCH (21:33)
[2021-12-12 00:23] VITALS: O2SAT 91
[2021-12-12] MEDS: DOXYCYCLINE HYCLATE 100MG TABLET PO SCH (02:52)
[2021-12-12 06:00] VITALS: BP 113/78
[2021-12-12 06:24] LABS: HEMATOCRIT 35.7 % (36.0-47.0); HEMOGLOBIN 10.5 g/dl (12.0-15.5); MEAN CORPUSCULAR HEMOGLOBIN 23.2 pg (27.0-33.0); MEAN CORPUSCULAR HGB CONC 29.4 g/dl (32.0-36.5); MEAN CORPUSCULAR VOLUME 78.8 fl (80.0-96.0); PLATELET COUNT, AUTOMATED 288 10^3/uL (150-450); RED BLOOD COUNT 4.53 10^6/uL (4.00-5.40); WHITE BLOOD COUNT 7.7 10^3/uL (4.0-10.0)
[2021-12-12 06:57] LABS: BLOOD UREA NITROGEN 12 MG/DL (7-18); CALCIUM LEVEL 8.5 MG/DL (8.5-10.1); CARBON DIOXIDE LEVEL 26 MEQ/L (21-32); CHLORIDE LEVEL 103 MEQ/L (98-107); CREATININE FOR GFR 0.68 MG/DL (0.55-1.30); GLOMERULAR FILTRATION RATE > 60.0 (>51); GLUCOSE, FASTING 94 MG/DL (70-100); SODIUM LEVEL 139 MEQ/L (136-145)
[2021-12-12] MEDS: BUDESONIDE 180MCG INHALER (PULMICORT FLEXHALER) INH SCH (07:21)
[2021-12-12] MEDS ORDERED: DOXY-350 PO (08:51)
[2021-12-12] MEDS ORDERED: CEFD300C41 PO (08:51)
[2021-12-12] MEDS: FEXOFENADINE 60MG TAB PO SCH (09:09)
[2021-12-12] MEDS: ATORVASTATIN 20 MG TAB PO SCH (09:10)
[2021-12-12] MEDS: LACTOBACILLUS ACIDOPHILUS CAP (BACID) PO SCH (09:10)
[2021-12-12] MEDS: OMEPRAZOLE 20MG CAP PO SCH (09:10)
[2021-12-12] MEDS: MULTIVITAMINS/MINERALS THERAP 1 TAB PO SCH (09:10)
[2021-12-13 16:08] LABS: BODY FLUID CULTURE Not indicated. (.); LEGIONELLA ANTIGEN URINE Negative (Negative); ORGANISM ID Not indicated. (.); SPECIMEN SOURCE Urine (.); URINE STREP PNEUMONIAE ANTIGEN Negative (Negative)
[2021-12-14 03:12] LABS: ASPERGILLUS GALACTOMANNAN AG 0.02 Index (0.00-0.49); FUNGITELL, SERUM <31 pg/mL (<80)
== END 2021-12-12 11:05 | disposition home or self-care (01) | DRG 952 ==
LOC: M ED 17:21 → M ED INP 22:51 → ENRESERV 12-10 03:51 → M MSPAV 12-10 04:44
PROVIDERS: ADMIT Internal Medicine; ATTEND General Practice
PROC: 0W993ZX Drainage of Right Pleural Cavity, Percutaneous Approach, Diagnostic (ICD-10-PCS; 2021-12-11)
PROC: 07D Lymphatic and Hemic Systems, Extraction (ICD-10-PCS; principal; 2021-12-11 15:30)
DX: C64.2 Malignant neoplasm of left kidney, except renal pelvis (principal); J91.0 Malignant pleural effusion; J18.9 Pneumonia, unspecified organism; I31.3 Pericardial effusion (noninflammatory); K21.9 Gastro-esophageal reflux disease without esophagitis; J45.909 Unspecified asthma, uncomplicated; I10 Essential (primary) hypertension; R59.0 Localized enlarged lymph nodes; R06.09 Other forms of dyspnea; Z79.82 Long term (current) use of aspirin; Z79.899 Other long term (current) drug therapy; Z88.2 Allergy status to sulfonamides; Z88.8 Allergy status to other drugs, medicaments and biological substances; D50.9 Iron deficiency anemia, unspecified; F32.A Depression, unspecified; E78.5 Hyperlipidemia, unspecified; E66.9 Obesity, unspecified; Z68.37 Body mass index [BMI] 37.0-37.9, adult

== ENCOUNTER 2021-12-18 15:49 | Inpatient (IN) | payer BC, OTHER ==
[~2021-12-18] VITALS: Ht 171.4 cm; Wt 105.0 kg
[~2021-12-18 15:49] MED LIST changes: +CEFD300C41 PO; +DOXY-350 PO
[2021-12-18 17:45] LABS: BASO % 0.2 % (0.0-1.0); EOS # 0.1 10^3/uL (0.0-0.5); EOS % 1.5 % (0.0-3.0); HEMATOCRIT 37.8 % (36.0-47.0); HEMOGLOBIN 11.3 g/dl (12.0-15.5); LYMPH # 0.8 10^3/uL (1.5-5.0); LYMPH % 9.7 % (24.0-44.0); MEAN CORPUSCULAR HEMOGLOBIN 23.1 pg (27.0-33.0); MEAN CORPUSCULAR HGB CONC 29.9 g/dl (32.0-36.5); MEAN CORPUSCULAR VOLUME 77.3 fl (80.0-96.0); MONO # 0.7 10^3/uL (0.0-0.8); MONO % 9.1 % (2.0-8.0); NEUTROPHILS # 6.4 10^3/uL (1.5-8.5); NEUTROPHILS % 78.9 % (36.0-66.0); PLATELET COUNT, AUTOMATED 326 10^3/uL (150-450); RED BLOOD COUNT 4.89 10^6/uL (4.00-5.40); WHITE BLOOD COUNT 8.1 10^3/uL (4.0-10.0)
[2021-12-18 18:26] LABS: CK-MB VALUE MASS < 1.0 NG/ML (<3.6); CPK CREATINE PHOSPHOKINASE 36 U/L (26-192); MB/CK RELATIVE INDEX 2.78 (< OR =4)
[2021-12-18 18:33] LABS: BLOOD UREA NITROGEN 14 MG/DL (7-18); CARBON DIOXIDE LEVEL 25 MEQ/L (21-32); CHLORIDE LEVEL 102 MEQ/L (98-107); CREATININE FOR GFR 0.75 MG/DL (0.55-1.30); FREE T4 1.23 NG/DL (0.76-1.46); GLOMERULAR FILTRATION RATE > 60.0 (>51); GLUCOSE, FASTING 100 MG/DL (70-100); NT-PRO BNP 183 PG/ML (<125); POTASSIUM SERUM 4.2 MEQ/L (3.5-5.1); SODIUM LEVEL 135 MEQ/L (136-145)
[2021-12-18 19:26] LABS: CK-MB VALUE MASS < 1.0 NG/ML (<3.6); CPK CREATINE PHOSPHOKINASE 33 U/L (26-192); MB/CK RELATIVE INDEX 3.03 (< OR =4)
[2021-12-18] MEDS ORDERED: PIPERACILLIN/TAZOBACTAM SOD 4.5 GM in D5W MINI-BAG PLUS 50 ML IV ONE (19:45)
[2021-12-18] MEDS ORDERED: VANCOMYCIN HCL 1,000 MG, VIAL MATE ADAPTER 1 EACH in NS 250 ML IV ONE (19:45)
[2021-12-18] MEDS ORDERED: DOXY100T PO (20:30)
[2021-12-18] MEDS ORDERED: CEFD300C41 PO (20:30)
[2021-12-18] MEDS ORDERED: HOME MED LIST COMPLETE! XX SCH (20:35)
[2021-12-18] MEDS ORDERED: ISOVUE-370 76% 100ML VIAL As Ordered ONE (21:46)
[2021-12-18] MEDS ORDERED: NS 1,000 ML IV SCH (22:40)
[2021-12-18] MEDS ORDERED: ACETAMINOPHEN TAB 650MG DOSE (2X325MG) PO PRN (22:40)
[2021-12-18] MEDS ORDERED: HYDROMORPHONE HCL 0.5 MG/ 0.5 ML SYRINGE (J1170 PER 1) IV PRN (22:40)
[2021-12-18] MEDS ORDERED: NS 500 ML IV ONE (22:40)
[2021-12-19] VITALS (7 sets, daily range): BP systolic 130–157; BP diastolic 64–85
[2021-12-19] MEDS: HEPARIN SOD (PORCINE) 5000UNITS/ML 1ML VIAL/SYRINGE SC SCH ×3 (05:37→21:32)
[2021-12-19 07:04] LABS: BLOOD UREA NITROGEN 14 MG/DL (7-18); CALCIUM LEVEL 8.3 MG/DL (8.5-10.1); CARBON DIOXIDE LEVEL 28 MEQ/L (21-32); CHLORIDE LEVEL 105 MEQ/L (98-107); CREATININE FOR GFR 0.77 MG/DL (0.55-1.30); GLOMERULAR FILTRATION RATE > 60.0 (>51); GLUCOSE, FASTING 94 MG/DL (70-100); POTASSIUM SERUM 4.3 MEQ/L (3.5-5.1); SODIUM LEVEL 138 MEQ/L (136-145)
[2021-12-19] MEDS ORDERED: ALBUTEROL 90 MCG/ACT 8GM HFA INHALER INH PRN (15:45)
[2021-12-19] MEDS ORDERED: FLUTICASONE PROP 0.05% NASAL SPRAY 16 GM (FLONASE) NARES PRN (15:45)
[2021-12-19] MEDS: TIOTROPIUM INHALER/CAPSULE (SPIRIVA) INH SCH (16:55)
[2021-12-19] MEDS: PANTOPRAZOLE 40MG VIAL IV SCH (18:15)
[2021-12-19] MEDS: SYMBICORT 80/4.5MCG INHALER 6GM INH SCH (20:16)
[2021-12-19] MEDS: KETOROLAC 30 MG/ML 1ML VIAL IV SCH (20:27)
[2021-12-19] MEDS: COLCHICINE 0.6 MG TABLET PO SCH (20:27)
[2021-12-19] MEDS: ESCITALOPRAM OXALATE 10 MG TAB (LEXAPRO) PO SCH (20:28)
[2021-12-19] MEDS: TERAZOSIN 1 MG CAP PO SCH (20:28)
[2021-12-19] MEDS ORDERED: IBUPROFEN 600MG TAB PO SCH (22:00)
[2021-12-19 22:13] LABS: LDH LACTATE DEHYDROGENASE 701 U/L (84-246)
[2021-12-20] VITALS (10 sets, daily range): BP systolic 120–157; BP diastolic 74–85; O2SAT 94–95
[2021-12-20] MEDS: KETOROLAC 30 MG/ML 1ML VIAL IV SCH ×4 (01:56→20:12)
[2021-12-20] MEDS: HEPARIN SOD (PORCINE) 5000UNITS/ML 1ML VIAL/SYRINGE SC SCH ×3 (05:03→22:37)
[2021-12-20 06:02] LABS: BASO % 0.5 % (0.0-1.0); EOS # 0.2 10^3/uL (0.0-0.5); EOS % 3.1 % (0.0-3.0); HEMATOCRIT 36.6 % (36.0-47.0); HEMOGLOBIN 10.8 g/dl (12.0-15.5); LYMPH # 0.7 10^3/uL (1.5-5.0); LYMPH % 11.7 % (24.0-44.0); MEAN CORPUSCULAR HEMOGLOBIN 23.5 pg (27.0-33.0); MEAN CORPUSCULAR HGB CONC 29.5 g/dl (32.0-36.5); MEAN CORPUSCULAR VOLUME 79.7 fl (80.0-96.0); MONO # 0.6 10^3/uL (0.0-0.8); MONO % 8.9 % (2.0-8.0); NEUTROPHILS # 4.6 10^3/uL (1.5-8.5); NEUTROPHILS % 75.3 % (36.0-66.0); PLATELET COUNT, AUTOMATED 314 10^3/uL (150-450); RED BLOOD COUNT 4.59 10^6/uL (4.00-5.40); WHITE BLOOD COUNT 6.2 10^3/uL (4.0-10.0)
[2021-12-20 06:39] LABS: BLOOD UREA NITROGEN 17 MG/DL (7-18); CALCIUM LEVEL 8.4 MG/DL (8.5-10.1); CARBON DIOXIDE LEVEL 28 MEQ/L (21-32); CHLORIDE LEVEL 104 MEQ/L (98-107); CREATININE FOR GFR 0.79 MG/DL (0.55-1.30); GLOMERULAR FILTRATION RATE > 60.0 (>51); GLUCOSE, FASTING 93 MG/DL (70-100); POTASSIUM SERUM 4.1 MEQ/L (3.5-5.1); SODIUM LEVEL 139 MEQ/L (136-145)
[2021-12-20] MEDS: SYMBICORT 80/4.5MCG INHALER 6GM INH SCH ×2 (07:48→19:42)
[2021-12-20] MEDS: TIOTROPIUM INHALER/CAPSULE (SPIRIVA) INH SCH (07:48)
[2021-12-20 08:36] LABS: ALBUMIN 2.4 GM/DL (3.2-5.2); ALT/SGPT 20 U/L (12-78); BILIRUBIN,DIRECT 0.1 MG/DL (0.0-0.2); BILIRUBIN,TOTAL 0.6 MG/DL (0.2-1.0); C REACTIVE PROTEIN QUANTITATIV 4.06 MG/DL (0.00-0.30); LDH LACTATE DEHYDROGENASE 648 U/L (84-246); TOTAL PROTEIN 5.4 GM/DL (6.4-8.2)
[2021-12-20] MEDS ORDERED: LIDOCAINE 1% MDV 20ML VIAL As Ordered ONE (08:50)
[2021-12-20] MEDS ORDERED: OMEPRAZOLE 20MG CAP PO SCH (09:00)
[2021-12-20] MEDS: FEXOFENADINE 60MG TAB PO SCH (09:56)
[2021-12-20] MEDS: ATORVASTATIN 20 MG TAB PO SCH (09:56)
[2021-12-20] MEDS: MULTIVITAMINS/MINERALS THERAP 1 TAB PO SCH (09:56)
[2021-12-20] MEDS: ASPIRIN 325 MG TAB PO SCH (09:56)
[2021-12-20] MEDS: COLCHICINE 0.6 MG TABLET PO SCH ×2 (09:56→20:12)
[2021-12-20] MEDS: PANTOPRAZOLE 40MG VIAL IV SCH (09:57)
[2021-12-20 10:24] LABS: PH BODY FLUID 7.574 UNITS (NOT ESTABLISHED); SOURCE, BODY FLUID pH PLEURAL
[2021-12-20 10:48] LABS: AMYLASE, BODY FLUID 6 U/L (NOT ESTABLISHED); CHOLESTEROL, BODY FLUID < 50 MG/DL (NOT ESTABLISHED); LDH, BODY FLUID 436 U/L (NOT ESTABLISHED); SOURCE, BODY FLUID ALBUMIN PLEURAL; SOURCE, BODY FLUID AMYLASE PLEURAL; SOURCE, BODY FLUID CHOL PLEURAL; SOURCE, BODY FLUID GLUCOSE PLEURAL; SOURCE, BODY FLUID LDH PLEURAL; SOURCE, BODY FLUID TOT PROTEIN PLEURAL; SOURCE, BODY FLUID TRIG PLEURAL; TOTAL PROTEIN, BODY FLUID 2.9 G/DL (NOT ESTABLISHED); TRIGLYCERIDE, BODY FLUID 17 MG/DL (NOT ESTABLISHED)
[2021-12-20 10:52] LABS: APPEARANCE, BODY FLUID CLOUDY (CLEAR); PLEURAL FL COLOR RED (COLORLESS); SOURCE, BODY FLUID PLEURAL
[2021-12-20] MEDS ORDERED: INLY5TAB PO (17:02)
[2021-12-20] MEDS: TERAZOSIN 1 MG CAP PO SCH (20:13)
[2021-12-20] MEDS: ESCITALOPRAM OXALATE 10 MG TAB (LEXAPRO) PO SCH (20:14)
[2021-12-21] VITALS (15 sets, daily range): BP systolic 114–145; BP diastolic 68–83; O2SAT 94–96
[2021-12-21] MEDS: KETOROLAC 30 MG/ML 1ML VIAL IV SCH ×4 (01:40→20:44)
[2021-12-21 04:41] LABS: BASO % 0.4 % (0.0-1.0); EOS # 0.2 10^3/uL (0.0-0.5); EOS % 2.4 % (0.0-3.0); HEMATOCRIT 37.2 % (36.0-47.0); HEMOGLOBIN 10.9 g/dl (12.0-15.5); LYMPH # 0.7 10^3/uL (1.5-5.0); LYMPH % 9.8 % (24.0-44.0); MEAN CORPUSCULAR HEMOGLOBIN 23.3 pg (27.0-33.0); MEAN CORPUSCULAR HGB CONC 29.3 g/dl (32.0-36.5); MEAN CORPUSCULAR VOLUME 79.5 fl (80.0-96.0); MONO # 0.6 10^3/uL (0.0-0.8); MONO % 8.6 % (2.0-8.0); NEUTROPHILS # 5.3 10^3/uL (1.5-8.5); NEUTROPHILS % 78.5 % (36.0-66.0); PLATELET COUNT, AUTOMATED 318 10^3/uL (150-450); RED BLOOD COUNT 4.68 10^6/uL (4.00-5.40); WHITE BLOOD COUNT 6.8 10^3/uL (4.0-10.0)
[2021-12-21 05:09] LABS: BLOOD UREA NITROGEN 20 MG/DL (7-18); CALCIUM LEVEL 8.4 MG/DL (8.5-10.1); CARBON DIOXIDE LEVEL 25 MEQ/L (21-32); CHLORIDE LEVEL 104 MEQ/L (98-107); CREATININE FOR GFR 0.69 MG/DL (0.55-1.30); GLOMERULAR FILTRATION RATE > 60.0 (>51); GLUCOSE, FASTING 102 MG/DL (70-100); MAGNESIUM LEVEL 1.9 MG/DL (1.8-2.4); POTASSIUM SERUM 4.2 MEQ/L (3.5-5.1); SODIUM LEVEL 138 MEQ/L (136-145)
[2021-12-21] MEDS: HEPARIN SOD (PORCINE) 5000UNITS/ML 1ML VIAL/SYRINGE SC SCH ×3 (05:55→22:00)
[2021-12-21] MEDS: TIOTROPIUM INHALER/CAPSULE (SPIRIVA) INH SCH (08:00)
[2021-12-21] MEDS: SYMBICORT 80/4.5MCG INHALER 6GM INH SCH ×2 (08:00→19:55)
[2021-12-21] MEDS: MULTIVITAMINS/MINERALS THERAP 1 TAB PO SCH (09:56)
[2021-12-21] MEDS: PANTOPRAZOLE 40MG VIAL IV SCH (09:56)
[2021-12-21] MEDS: ASPIRIN 325 MG TAB PO SCH (09:56)
[2021-12-21] MEDS: ATORVASTATIN 20 MG TAB PO SCH (09:56)
[2021-12-21] MEDS: FEXOFENADINE 60MG TAB PO SCH (09:56)
[2021-12-21] MEDS: COLCHICINE 0.6 MG TABLET PO SCH ×2 (09:56→20:45)
[2021-12-21] MEDS: ESCITALOPRAM OXALATE 10 MG TAB (LEXAPRO) PO SCH (20:45)
[2021-12-21] MEDS: TERAZOSIN 1 MG CAP PO SCH (20:46)
[2021-12-22] VITALS (29 sets, daily range): BP systolic 118–147; BP diastolic 61–78; O2SAT 82–96
[2021-12-22] MEDS: KETOROLAC 30 MG/ML 1ML VIAL IV SCH ×4 (02:51→21:32)
[2021-12-22] MEDS: HEPARIN SOD (PORCINE) 5000UNITS/ML 1ML VIAL/SYRINGE SC SCH ×3 (05:37→21:32)
[2021-12-22 05:52] LABS: BASO % 0.5 % (0.0-1.0); EOS # 0.2 10^3/uL (0.0-0.5); EOS % 2.5 % (0.0-3.0); HEMATOCRIT 37.7 % (36.0-47.0); HEMOGLOBIN 10.8 g/dl (12.0-15.5); LYMPH # 0.8 10^3/uL (1.5-5.0); LYMPH % 11.7 % (24.0-44.0); MEAN CORPUSCULAR HEMOGLOBIN 22.7 pg (27.0-33.0); MEAN CORPUSCULAR HGB CONC 28.6 g/dl (32.0-36.5); MEAN CORPUSCULAR VOLUME 79.2 fl (80.0-96.0); MONO # 0.5 10^3/uL (0.0-0.8); MONO % 7.6 % (2.0-8.0); NEUTROPHILS % 77.2 % (36.0-66.0); PLATELET COUNT, AUTOMATED 314 10^3/uL (150-450); RED BLOOD COUNT 4.76 10^6/uL (4.00-5.40); WHITE BLOOD COUNT 6.4 10^3/uL (4.0-10.0)
[2021-12-22 06:28] LABS: BLOOD UREA NITROGEN 22 MG/DL (7-18); CALCIUM LEVEL 8.9 MG/DL (8.5-10.1); CARBON DIOXIDE LEVEL 24 MEQ/L (21-32); CHLORIDE LEVEL 104 MEQ/L (98-107); CREATININE FOR GFR 0.81 MG/DL (0.55-1.30); GLOMERULAR FILTRATION RATE > 60.0 (>51); GLUCOSE, FASTING 117 MG/DL (70-100); MAGNESIUM LEVEL 1.9 MG/DL (1.8-2.4); POTASSIUM SERUM 4.1 MEQ/L (3.5-5.1); SODIUM LEVEL 136 MEQ/L (136-145)
[2021-12-22] MEDS: TIOTROPIUM INHALER/CAPSULE (SPIRIVA) INH SCH (07:12)
[2021-12-22] MEDS: SYMBICORT 80/4.5MCG INHALER 6GM INH SCH ×2 (07:12→19:13)
[2021-12-22] MEDS: COLCHICINE 0.6 MG TABLET PO SCH ×2 (08:52→21:33)
[2021-12-22] MEDS: MULTIVITAMINS/MINERALS THERAP 1 TAB PO SCH (08:52)
[2021-12-22] MEDS: PANTOPRAZOLE 40MG VIAL IV SCH (08:52)
[2021-12-22] MEDS: ASPIRIN 325 MG TAB PO SCH (08:52)
[2021-12-22] MEDS: ATORVASTATIN 20 MG TAB PO SCH (08:52)
[2021-12-22] MEDS: FEXOFENADINE 60MG TAB PO SCH (08:53)
[2021-12-22] MEDS: TERAZOSIN 1 MG CAP PO SCH (21:33)
[2021-12-22] MEDS: ESCITALOPRAM OXALATE 10 MG TAB (LEXAPRO) PO SCH (21:33)
[2021-12-23] VITALS (11 sets, daily range): BP systolic 112–147; BP diastolic 69–80; O2SAT 93–94
[2021-12-23] MEDS: KETOROLAC 30 MG/ML 1ML VIAL IV SCH ×6 (03:06→21:03)
[2021-12-23] MEDS: HEPARIN SOD (PORCINE) 5000UNITS/ML 1ML VIAL/SYRINGE SC SCH ×3 (05:29→20:39)
[2021-12-23 06:00] LABS: BASO % 0.5 % (0.0-1.0); EOS # 0.2 10^3/uL (0.0-0.5); EOS % 3.1 % (0.0-3.0); HEMATOCRIT 33.9 % (36.0-47.0); HEMOGLOBIN 10.1 g/dl (12.0-15.5); LYMPH # 0.6 10^3/uL (1.5-5.0); LYMPH % 9.9 % (24.0-44.0); MEAN CORPUSCULAR HEMOGLOBIN 23.4 pg (27.0-33.0); MEAN CORPUSCULAR HGB CONC 29.8 g/dl (32.0-36.5); MEAN CORPUSCULAR VOLUME 78.5 fl (80.0-96.0); MONO # 0.5 10^3/uL (0.0-0.8); MONO % 9.2 % (2.0-8.0); NEUTROPHILS # 4.5 10^3/uL (1.5-8.5); NEUTROPHILS % 76.6 % (36.0-66.0); PLATELET COUNT, AUTOMATED 311 10^3/uL (150-450); RED BLOOD COUNT 4.32 10^6/uL (4.00-5.40); WHITE BLOOD COUNT 5.9 10^3/uL (4.0-10.0)
[2021-12-23 06:32] LABS: BLOOD UREA NITROGEN 21 MG/DL (7-18); CALCIUM LEVEL 8.3 MG/DL (8.5-10.1); CARBON DIOXIDE LEVEL 28 MEQ/L (21-32); CHLORIDE LEVEL 105 MEQ/L (98-107); CREATININE FOR GFR 0.72 MG/DL (0.55-1.30); GLOMERULAR FILTRATION RATE > 60.0 (>51); GLUCOSE, FASTING 93 MG/DL (70-100); SODIUM LEVEL 138 MEQ/L (136-145)
[2021-12-23] MEDS: SYMBICORT 80/4.5MCG INHALER 6GM INH SCH ×2 (07:11→20:07)
[2021-12-23] MEDS: TIOTROPIUM INHALER/CAPSULE (SPIRIVA) INH SCH (07:11)
[2021-12-23] MEDS: COLCHICINE 0.6 MG TABLET PO SCH ×2 (08:34→20:38)
[2021-12-23] MEDS: ATORVASTATIN 20 MG TAB PO SCH (08:34)
[2021-12-23] MEDS: ASPIRIN 325 MG TAB PO SCH (08:34)
[2021-12-23] MEDS: MULTIVITAMINS/MINERALS THERAP 1 TAB PO SCH (08:34)
[2021-12-23] MEDS: FEXOFENADINE 60MG TAB PO SCH (08:34)
[2021-12-23] MEDS: PANTOPRAZOLE 40MG VIAL IV SCH (08:34)
[2021-12-23] MEDS: ESCITALOPRAM OXALATE 10 MG TAB (LEXAPRO) PO SCH (20:38)
[2021-12-23] MEDS: TERAZOSIN 1 MG CAP PO SCH (20:38)
[2021-12-24] VITALS (7 sets, daily range): BP systolic 120–144; BP diastolic 70–80
[2021-12-24] MEDS: HEPARIN SOD (PORCINE) 5000UNITS/ML 1ML VIAL/SYRINGE SC SCH ×3 (05:35→20:46)
[2021-12-24 06:05] LABS: BASO % 0.3 % (0.0-1.0); EOS # 0.2 10^3/uL (0.0-0.5); EOS % 2.5 % (0.0-3.0); HEMATOCRIT 35.2 % (36.0-47.0); HEMOGLOBIN 10.3 g/dl (12.0-15.5); LYMPH # 0.7 10^3/uL (1.5-5.0); LYMPH % 10.2 % (24.0-44.0); MEAN CORPUSCULAR HEMOGLOBIN 22.8 pg (27.0-33.0); MEAN CORPUSCULAR HGB CONC 29.3 g/dl (32.0-36.5); MONO # 0.6 10^3/uL (0.0-0.8); NEUTROPHILS # 4.9 10^3/uL (1.5-8.5); NEUTROPHILS % 76.5 % (36.0-66.0); PLATELET COUNT, AUTOMATED 313 10^3/uL (150-450); RED BLOOD COUNT 4.51 10^6/uL (4.00-5.40); WHITE BLOOD COUNT 6.4 10^3/uL (4.0-10.0)
[2021-12-24 06:34] LABS: BLOOD UREA NITROGEN 18 MG/DL (7-18); CALCIUM LEVEL 8.4 MG/DL (8.5-10.1); CARBON DIOXIDE LEVEL 26 MEQ/L (21-32); CHLORIDE LEVEL 103 MEQ/L (98-107); CREATININE FOR GFR 0.58 MG/DL (0.55-1.30); GLOMERULAR FILTRATION RATE > 60.0 (>51); GLUCOSE, FASTING 89 MG/DL (70-100); MAGNESIUM LEVEL 1.8 MG/DL (1.8-2.4); POTASSIUM SERUM 4.2 MEQ/L (3.5-5.1); SODIUM LEVEL 136 MEQ/L (136-145)
[2021-12-24] MEDS: SYMBICORT 80/4.5MCG INHALER 6GM INH SCH ×2 (07:08→20:39)
[2021-12-24] MEDS: TIOTROPIUM INHALER/CAPSULE (SPIRIVA) INH SCH (07:08)
[2021-12-24] MEDS: KETOROLAC 30 MG/ML 1ML VIAL IV SCH ×2 (09:48→14:00)
[2021-12-24] MEDS: PANTOPRAZOLE 40MG VIAL IV SCH (09:48)
[2021-12-24] MEDS: ASPIRIN 325 MG TAB PO SCH (09:49)
[2021-12-24] MEDS: FEXOFENADINE 60MG TAB PO SCH (09:49)
[2021-12-24] MEDS: COLCHICINE 0.6 MG TABLET PO SCH ×2 (09:49→20:45)
[2021-12-24] MEDS: ATORVASTATIN 20 MG TAB PO SCH (09:49)
[2021-12-24] MEDS: MULTIVITAMINS/MINERALS THERAP 1 TAB PO SCH (09:49)
[2021-12-24] MEDS: TERAZOSIN 1 MG CAP PO SCH (20:45)
[2021-12-24] MEDS: ESCITALOPRAM OXALATE 10 MG TAB (LEXAPRO) PO SCH (20:45)
[2021-12-25] VITALS: BP 153/75
[2021-12-25 04:00] VITALS: BP 149/75
[2021-12-25 04:52] LABS: BASO % 0.3 % (0.0-1.0); EOS # 0.1 10^3/uL (0.0-0.5); EOS % 1.9 % (0.0-3.0); HEMATOCRIT 35.9 % (36.0-47.0); HEMOGLOBIN 10.5 g/dl (12.0-15.5); LYMPH # 0.6 10^3/uL (1.5-5.0); LYMPH % 9.9 % (24.0-44.0); MEAN CORPUSCULAR HEMOGLOBIN 22.7 pg (27.0-33.0); MEAN CORPUSCULAR HGB CONC 29.2 g/dl (32.0-36.5); MEAN CORPUSCULAR VOLUME 77.7 fl (80.0-96.0); MONO # 0.6 10^3/uL (0.0-0.8); MONO % 9.7 % (2.0-8.0); NEUTROPHILS # 4.8 10^3/uL (1.5-8.5); NEUTROPHILS % 77.6 % (36.0-66.0); PLATELET COUNT, AUTOMATED 290 10^3/uL (150-450); RED BLOOD COUNT 4.62 10^6/uL (4.00-5.40); WHITE BLOOD COUNT 6.2 10^3/uL (4.0-10.0)
[2021-12-25 05:19] LABS: BLOOD UREA NITROGEN 16 MG/DL (7-18); CALCIUM LEVEL 8.4 MG/DL (8.5-10.1); CARBON DIOXIDE LEVEL 25 MEQ/L (21-32); CHLORIDE LEVEL 102 MEQ/L (98-107); CREATININE FOR GFR 0.67 MG/DL (0.55-1.30); GLOMERULAR FILTRATION RATE > 60.0 (>51); GLUCOSE, FASTING 92 MG/DL (70-100); MAGNESIUM LEVEL 1.8 MG/DL (1.8-2.4); SODIUM LEVEL 134 MEQ/L (136-145)
[2021-12-25] MEDS: HEPARIN SOD (PORCINE) 5000UNITS/ML 1ML VIAL/SYRINGE SC SCH ×2 (05:41→14:00)
[2021-12-25 08:00] VITALS: BP 132/66
[2021-12-25] MEDS: TIOTROPIUM INHALER/CAPSULE (SPIRIVA) INH SCH (08:04)
[2021-12-25] MEDS: SYMBICORT 80/4.5MCG INHALER 6GM INH SCH (08:05)
[2021-12-25] MEDS: ASPIRIN 325 MG TAB PO SCH (09:42)
[2021-12-25] MEDS: MULTIVITAMINS/MINERALS THERAP 1 TAB PO SCH (09:42)
[2021-12-25] MEDS: ATORVASTATIN 20 MG TAB PO SCH (09:42)
[2021-12-25] MEDS: FEXOFENADINE 60MG TAB PO SCH (09:44)
[2021-12-25] MEDS: PANTOPRAZOLE 40MG VIAL IV SCH (09:44)
[2021-12-25] MEDS: COLCHICINE 0.6 MG TABLET PO SCH (09:44)
[2021-12-25 12:00] VITALS: BP 136/76
[2021-12-25 16:15] VITALS: BP 126/80
== END 2021-12-25 16:48 | disposition home health service (06) | DRG 694 ==
LOC: M ED 15:49 → M ED INP 22:36 → M MSPAV 12-19 → M PCU 12-19 18:30
PROVIDERS: ADMIT Internal Medicine; ATTEND Family Medicine
PROC: B246ZZZ Ultrasonography of Right and Left Heart (ICD-10-PCS; principal; 2021-12-19)
PROC: 0W9930Z Drainage of Right Pleural Cavity with Drainage Device, Percutaneous Approach (ICD-10-PCS; 2021-12-20)
DX: C77.3 Secondary and unspecified malignant neoplasm of axilla and upper limb lymph nodes (principal); C78.1 Secondary malignant neoplasm of mediastinum; J91.0 Malignant pleural effusion; I31.3 Pericardial effusion (noninflammatory); C64.2 Malignant neoplasm of left kidney, except renal pelvis; I10 Essential (primary) hypertension; D50.9 Iron deficiency anemia, unspecified; E78.00 Pure hypercholesterolemia, unspecified; F32.A Depression, unspecified; K21.9 Gastro-esophageal reflux disease without esophagitis; Z79.82 Long term (current) use of aspirin; Z79.51 Long term (current) use of inhaled steroids; Z79.899 Other long term (current) drug therapy; Z79.2 Long term (current) use of antibiotics; Z20.822 Contact with and (suspected) exposure to COVID-19; Z88.2 Allergy status to sulfonamides; Z88.8 Allergy status to other drugs, medicaments and biological substances; Z86.73 Personal history of transient ischemic attack (TIA), and cerebral infarction without residual deficits; J95.811 Postprocedural pneumothorax; Z77.22 Contact with and (suspected) exposure to environmental tobacco smoke (acute) (chronic); F41.9 Anxiety disorder, unspecified

== ENCOUNTER 2021-12-31 11:40 | Emergency (ER) | payer BC, OTHER ==
[~2021-12-31] VITALS: Ht 170.2 cm; Wt 100.9 kg
[~2021-12-31 11:40] MED LIST changes: +DOXY100T PO; +INLY5TAB PO
[2021-12-31 12:20] LABS: VENOUS BASE EXCESS 4.2 (-2.0-2.0); VENOUS HCO3 25.7 MEQ/L (23.0-27.0); VENOUS O2 SATURATION 99.3 % (60.0-80.0); VENOUS PARTIAL PRESSURE CO2 29.2 mmHg (38.0-50.0); VENOUS PH 7.562 UNITS (7.330-7.430); VENOUS STANDARD HCO3 28.2 MEQ/L; VENOUS TOTAL CO2 26.6 MEQ/L (24.0-28.0)
[2021-12-31 12:24] LABS: BASO % 0.2 % (0.0-1.0); EOS # 0.1 10^3/uL (0.0-0.5); EOS % 1.5 % (0.0-3.0); HEMATOCRIT 37.4 % (36.0-47.0); HEMOGLOBIN 11.3 g/dl (12.0-15.5); LYMPH # 0.5 10^3/uL (1.5-5.0); LYMPH % 6.3 % (24.0-44.0); MEAN CORPUSCULAR HEMOGLOBIN 23.5 pg (27.0-33.0); MEAN CORPUSCULAR HGB CONC 30.2 g/dl (32.0-36.5); MEAN CORPUSCULAR VOLUME 77.9 fl (80.0-96.0); MONO # 0.7 10^3/uL (0.0-0.8); MONO % 8.4 % (2.0-8.0); NEUTROPHILS # 7.2 10^3/uL (1.5-8.5); NEUTROPHILS % 83.1 % (36.0-66.0); PLATELET COUNT, AUTOMATED 269 10^3/uL (150-450); WHITE BLOOD COUNT 8.6 10^3/uL (4.0-10.0)
[2021-12-31] MEDS ORDERED: COMBIVENT RESPIMAT 100-20MCG INHALER 4GM INH ONE (12:35)
[2021-12-31] MEDS ORDERED: methylPREDNISolone 125MG 2ML VIAL IV ONE (12:35)
[2021-12-31 12:57] VITALS: O2SAT 91
[2021-12-31 13:16] LABS: ALBUMIN 2.3 GM/DL (3.2-5.2); ALT/SGPT 38 U/L (12-78); BILIRUBIN,DIRECT 0.2 MG/DL (0.0-0.2); BILIRUBIN,TOTAL 0.8 MG/DL (0.2-1.0); BLOOD UREA NITROGEN 17 MG/DL (7-18); CALCIUM LEVEL 8.5 MG/DL (8.5-10.1); CARBON DIOXIDE LEVEL 26 MEQ/L (21-32); CHLORIDE LEVEL 100 MEQ/L (98-107); CREATININE FOR GFR 0.54 MG/DL (0.55-1.30); GLOMERULAR FILTRATION RATE > 60.0 (>51); GLUCOSE, FASTING 99 MG/DL (70-100); NT-PRO BNP 175 PG/ML (<125); POTASSIUM SERUM 4.6 MEQ/L (3.5-5.1); SODIUM LEVEL 134 MEQ/L (136-145); TOTAL PROTEIN 5.8 GM/DL (6.4-8.2)
[2021-12-31] MEDS ORDERED: ISOVUE-370 76% 100ML VIAL As Ordered ONE (13:31)
[2021-12-31] MEDS ORDERED: FURO20TA2 PO (14:53)
[2021-12-31] MEDS ORDERED: HOME MED LIST COMPLETE! XX SCH (14:55)
[2021-12-31 20:46] VITALS: BP 143/76
== END 2021-12-31 21:42 | disposition short-term general hospital (02) ==
LOC: EDBD 11:40 → M ED 11:40
DX: I31.3 Pericardial effusion (noninflammatory) (principal); I10 Essential (primary) hypertension; K21.9 Gastro-esophageal reflux disease without esophagitis; Z86.73 Personal history of transient ischemic attack (TIA), and cerebral infarction without residual deficits; Z88.2 Allergy status to sulfonamides; Z88.8 Allergy status to other drugs, medicaments and biological substances; Z79.899 Other long term (current) drug therapy; Z79.51 Long term (current) use of inhaled steroids
CPT/HCPCS: 71045; 71275; 80048; 80076; 82803; 83605; 83880; 84443; 84484; 85025; 87040; 87486; 87581; 87633; 87798; 93005; 93041; 93306; 94640; 94664; 96374; 99285; J2930; Q9967